=== PATIENT | male | born 1965 | race Caucasian/White ===

== ENCOUNTER 2017-12-11 11:58 | Emergency (ER) | payer OTHER, SELFPAY ==
[~2017-12-11] VITALS: Ht 172.7 cm; Wt 68.0 kg
[2017-12-11 12:02] VITALS: BP 123/80
[2017-12-11] MEDS ORDERED: KEFLEX500 MG ORAL (12:15)
[2017-12-11] MEDS ORDERED: BACTRIM DS TAB1 EAC1 ORAL (12:15)
[2017-12-11] MEDS ORDERED: Bactrim-DS 1 tab ORAL ONE (12:15)
[2017-12-11] MEDS ORDERED: Cephalexin 500mg cap ORAL ONE (12:15)
[2017-12-11 12:31] VITALS: BP 123/80
--- NOTE | 2017-12-17 00:38 | Emergency Room Report ---
History of Present Illness General Chief Complaint: Medical Clearance Source: Patient Present Illness HPI Patient is a 52-year-old male who presented for medical clearance. The patient had prior history of IV drug use. He reports having multiple open wounds. Patient stated that he had had not been using intramuscularly or skin popping. He denied any fever. The patient gradual onset of symptoms.The patient was brought in by senior it assistant in custody Allergies: Coded Allergies: No Known Allergies (Unverified , 12/11/17) Patient History Past Medical History: see triage record Reviewed Nursing Documentation: PMH: Agreed, PSxH: Agreed Nursing Documentation-PMH Past Medical History: No History, Except For Review of Systems All Other Systems: negative except mentioned in HPI Physical Exam Vital Signs Date Time Temp Pulse Resp B/P (MAP) Pulse Ox O2 Delivery O2 Flow Rate FiO2 12/11/17 12:02 97.9 88 14 123/80 96 Room Air General Appearance: well appearing, no apparent distress, alert, GCS 15 Head: normocephalic, atraumatic ENT: hearing grossly normal, normal voice Neck: full range of motion, supple Respiratory: no respiratory distress, speaking full sentences Cardiovascular #1: normal inspection, normal peripheral pulses, regular rate, rhythm Gastrointestinal: normal inspection Musculoskeletal: normal inspection, no calf tenderness Neurologic: alert, oriented x3, normal gait Psychiatric: mood/affect normal Skin: other - multiple erythematous skin lesion and ulcer Medical Decision Making Diagnostic Impression: Primary Impression: Infected skin lesion ER Course Patient presented for skin rash. Differential diagnosis included wasn't limited to abscess, cellulitis, necrotizing fasciitis among others. Patient has a benign exam and does not appear to require any further imaging or laboratory testing at this time. The patient was given oral antibiotics. Patient was medically cleared for booking. The patient given prescription for further antibiotic therapy. The patient was advised to return the hospital with he began having fever or worsening pain or other concerns Last Vital Signs Date Time Temp Pulse Resp B/P (MAP) Pulse Ox O2 Delivery O2 Flow Rate FiO2 12/11/17 12:32 97.9 88 14 123/80 96 Room Air Status: improved Disposition: D/C TO LAW ENFORCEMENT IN CUST Condition: Stable Scripts Cephalexin* (KEFLEX*) 500 Mg Capsule 500 MG ORAL Q6H, #28 CAP 0 Refills Prov: Kyle Rod 12/11/17 Trimethoprim/Sulfamethoxazole 160/800* (BACTRIM DS TABLET*) 1 Each Tablet 1 TAB ORAL DAILY, #20 TAB Prov: Kyle Rod 12/11/17 Referrals: NOT CHOSEN IPA/MD,REFERRING (PCP) Departure Forms: Half-Way Clearance Patient Instructions: Cellulitis Kyle Rod Dec 17, 2017 00:38
== END 2017-12-11 12:36 ==
LOC: EMR 12:34
DX: L98.9 Disorder of the skin and subcutaneous tissue, unspecified (principal)
CPT/HCPCS: 99283